=== PATIENT | male | born 1940 | race Caucasian/White ===

== ENCOUNTER 2020-12-22 16:00 | Inpatient (IN) | payer MEDICARE ==
[~2020-12-22] VITALS: Ht 167.6 cm; Wt 40.1 kg
[2020-12-22] MEDS ORDERED: OMNICEF300 MG PO (16:52)
[2020-12-22] MEDS ORDERED: THEREMS-M1 TAB PO (16:53)
[2020-12-22] MEDS ORDERED: COREG6.25 MG PO (16:54)
[2020-12-22] MEDS ORDERED: LIPITOR40 MG PO (16:55)
[2020-12-22] MEDS ORDERED: COZAAR25 MG PO (16:55)
[2020-12-22] MEDS ORDERED: NICODERM CQ1 EAC2 TOPICAL (16:56)
[2020-12-22] MEDS ORDERED: LASIX INJ40 MG/4 ML IV (16:57)
[2020-12-22] MEDS ORDERED: LOVENOX40 MG/0.4 SC (16:57)
[2020-12-22] MEDS ORDERED: PROTONIX40 MG PO (16:58)
[2020-12-22 16:59] LABS: BILIRUBIN NEGATIVE (NEGATIVE); KETONE NEGATIVE (NEGATIVE); NITRITE NEGATIVE (NEGATIVE); UROBILINOGEN NORMAL mg/dL (< 2)
--- NOTE | 2020-12-22 18:30 | NUR ---
Patient rec'd to unit via EMS, He was oriented to unit and room information. He is A/O times one to person. He is a fall risk. He has an alarm to his w/c and to his bed. He is redirected often and he will follow short commands only. All admission assessment, Hx. and orders completed.
--- NOTE | 2020-12-22 19:20 | NUR ---
PT IS RECEIVED OUTSIDE THE NURSES STATION IN A GERICHAIR. HE IS RESTLESS AND AGGRESSIVE WITH REDIRECTION. UNABLE TO REDIRECT. ADMINISTERED PRN HALDOL 2 MG AND ATIVAN 0.5 MG IM PER ORDERS. MONITOR FOR SAFETY.
--- NOTE | 2020-12-22 19:50 | NUR ---
PT RESTING CALMLY IN GERICHAIR OUTSIDE NURSES STATION. NO SIGNS OF DISTRESS NOTED.
[2020-12-22 20:00] VITALS: BP 184/115
--- NOTE | 2020-12-22 22:10 | NUR ---
ATTEMPTED TO CONTACT KINZA MADRID AT [phone] WITH NO ANSWER. UNABLE TO PROVIDE PASSCODE.
--- NOTE | 2020-12-22 23:21 | NUR ---
PT IS ALERT AND ORIENTED TO SELF ONLY. POOR INSIGHT INTO HIS SITUATION. AGGRESSIVE WITH REDIRECTION. COMPLIANT WITH ALL MEDICATIONS. RESISTANT TO REDIRECTION. VERY UNSTEADY WHEN AMBULATING. INCONT OF B&B. MONITOR FOR SAFETY.
[2020-12-23 01:31] VITALS: BP 150/90; BMI 16.5
[2020-12-23 05:49] LABS: BASOPHILS 0.3 % (0-2); EOSINOPHILS 1.6 % (0-7); HEMATOCRIT 49.5 % (42.0-54.0); HEMOGLOBIN 16.1 g/dL (13.5-17.5); IMMATURE GRANULOCYTES 0.3 % (0-5); LYMPHOCYTE ABS# 1.62 10x3/uL (1.32-3.57); MCH 29.6 pg (26.0-34.0); MCHC 32.5 g/dL (31.0-37.0); MEAN PLATELET VOLUME 11.3 fL (7.4-10.4); NEUTROPHIL ABS# 5.33 10x3/uL (1.78-5.38); NEUTROPHILS 68.8 % (40-80); PLATELET COUNT 186 10x3/uL (130-400); RBC 5.44 10x6/uL (4.20-6.10); RDW 15.5 % (11.5-14.5); WBC 7.7 10x3/uL (4.8-10.8)
[2020-12-23 06:40] LABS: ALBUMIN 2.7 g/dL (3.4-5.0); ALKALINE PHOSPHATASE 173 U/L (30-120); ALT (SGPT) 24 U/L (10-68); BILIRUBIN - TOTAL 0.89 mg/dL (0.2-1.3); CALC OSMOLALITY 275 mosm/kg (275-300); CALCIUM 8.5 mg/dL (8.5-10.1); CHLORIDE - SERUM 100 mmol/L (98-107); CHOL - HDL RATIO 3.7 ratio (2.3-4.9); CHOLESTEROL, TOTAL 154 mg/dL (0-200); GLUCOSE 86 mg/dL (74-106); HDL CHOLESTEROL 42 mg/dL (32-96); LDL CHOLESTEROL 92 mg/dL (0-100); LDL-HDL RATIO 2.2 ratio (1.5-3.5); POTASSIUM - SERUM 3.4 mmol/L (3.5-5.1); SODIUM 137 mmol/L (136-145); TRIGLYCERIDE 101 mg/dL (30-200); UREA NITROGEN 22 mg/dL (7-18); eGFR NON AFRICAN AMERICAN 76 mL/min (90-120)
--- NOTE | 2020-12-23 07:20 | NUR ---
PT DAUGHTER HOPE CALLED STATING WE HAVE HER DAD AND SOMEONE ATTEMPTED TO CALL HER LAST NIGHT AND SHE WAS RETURNING THE CALL. NURSE GAVE DAUGHTER THE PASSCODE AND STATED SHE WOULD CALL WITH AN UPDATE AFTER REPORT. SHE VERBALIZIED UNDERSTANDING.
[2020-12-23 09:27] VITALS: BP 155/102
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
--- NOTE | 2020-12-23 11:06 | NUR ---
NURSE ATTEMPTED TO CALL DR. JACKSON WHEN PT DAUGHTER REQUESTED PT/INR LABS AT THIS TIME.
--- NOTE | 2020-12-23 11:42 | NUR ---
NURSE SPOKE WITH ADAM AT [facility] IN REGARDS TO PT WARFARIN ORDERS AT THIS TIME. THE RECENT ORDER THAT WAS FILLED AT PHARMACY WAS WARFARIN 2 MG 1 TO 1/2 DAILY DIRECTED. NURSE OBTAINED NAME AND PHONE NUMBER OF ORDERING DOCTOR. JEANNE JACK OF [facility]. [phone]. WILL CALL TO OBTAIN CORRECT ORDER AT THIS TIME.
--- NOTE | 2020-12-23 11:50 | NUR ---
PT HERE AT THIS TIME TO EVAL PT AT THIS TIME.
--- NOTE | 2020-12-23 11:59 | NUR ---
PT LEFT A MESSAGE WITH NURSE AT [facility] FOR NURSE TO CALL BACK WITH CORRECT WARFARIN DOSAGE AT THIS TIME. AWAITING CALLBACK.
--- NOTE | 2020-12-23 13:00 | NUR ---
NURSE CALLED FROM [facility] WITH ORDER CLARIFICATION ON WARFARIN 1 MG WARFARIN 6 DAYS AND HOLD ON SATURDAY. NURSE THANKED HER FOR THE ORDER.
[2020-12-23 13:58] LABS: INR 1.35 (0.85-1.17); PROTIME 15.4 SECONDS (11.6-15.0)
--- NOTE | 2020-12-23 14:38 | NUR ---
ALERT, CALM, CONFUSED, COOPERATIVE. PATIENT AROSE FROM BED UNASSISTED AT BEGINNING OF SHIFT. PATIENT CAUTIONED TO CALL FOR ASSISTANCE WITH NEEDS. MIKE ALARM IN PLACE AND FUNCTIONING PROPERLY. PATIENT ASSISTED TO BATHROOM AND VOIDED IN TOILET. ASSISTED BACK TO BED. PATIENT VERY UNSTEADY WITH AMBULATION. NO FURTHER ADVERSE BEHAVIORS NOTED. CONTINUE POC PREVIOUSLY OUTLINED.
[2020-12-23 16:29] VITALS: Ht 167.6 cm; Wt 40.1 kg
--- NOTE | 2020-12-23 22:41 | NUR ---
PATIENT ATTEMPTED TO GET OUT OF BED AT BEGINNING OF SHIFT, EXPLAINED TO USE THE CALL WHITTEN, HE DOES NOT UNDERSTAND. ALARM ON AND AUDIBLE. MEDS CRUSHED AND GIVEN. WILL FOLLOW POC
[2020-12-24 00:03] VITALS: BP 120/93
[2020-12-24 08:42] LABS: PROTIME 12.7 SECONDS (11.6-15.0)
[2020-12-24 08:50] LABS: INR 1.05 (0.85-1.17)
[2020-12-24 09:11] VITALS: BP 142/88
--- NOTE | 2020-12-24 18:34 | NUR ---
Patient was rec'd this am lying on bed. He is med compliant when crushed and placed in food. He is full care with ADLs and food. He is incontient most of the time.
[2020-12-24 20:00] VITALS: BP 129/76
--- NOTE | 2020-12-24 21:23 | NUR ---
RECEIVED PATIENT IN HIS ROOM, HE IS VERY VERY CONFUSED, HE BECOMES ANGRY WITH REDIRECTION AND TRIES TO KICK STAFF. COMPLIANT WITH MEDS (CRUSHED). ALARM ON AND AUDIBLE. WILL FOLLOW POC
--- NOTE | 2020-12-25 00:56 | NUR ---
PATIENT GIVEN 0.5 ATIVAN IM FOR EXTREME AGITATION, HARD TO REDIRECT, HE HAS SAID A COUPLE OF TIMES THAT HE IS GOING TO ESCAPE. WILL MONITOR FOR EFFECTIVENESS
[2020-12-25 07:00] LABS: INR 1.22 (0.85-1.17); PROTIME 14.3 SECONDS (11.6-15.0)
[2020-12-25 09:53] VITALS: BP 120/64
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
--- NOTE | 2020-12-25 12:26 | NUR ---
RECEIVED PATIENT LYING IN RECLINING CHAIR BY NURSES STATION. PATIENT IS AWAKE AND ALERT TO PERSON ONLY. CALM AND COOPERATIVE WITH ASSESSMENT AT THIS TIME. PRESCRIBED MEDICATIONS PROVIDED ORDERED. MED COMPLIANT. PATIENT IS TOTAL CARE. STAFF ASSIST PATIENT WITH ADLS. PATIENT IS INCONTINENT OF BOWEL AND BLADDER. REDIRECT AND REORIENT nEEDED. FALL PRECAUTIONS IN PLACE FOR SAFETY. WILL CONTINUE PLAN OF CARE.
[2020-12-25 19:30] VITALS: BP 165/90
--- NOTE | 2020-12-25 21:08 | NUR ---
RECEIVED PATIENT IN BED, HE WAS TRYING TO GET UP AND PATIENT IS REDIRECTED WHICH HE BECOMES AGITATED WITH REDIRECTION. COMPLIANT WITH MEDS (CRUSHED). HE IS VERY CONFUSED, ALARM ON AND AUDIBLE
[2020-12-26 11:59] VITALS: BP 122/60
--- NOTE | 2020-12-26 15:48 | NUR ---
RECEIVED PATIENT IN HALLWAY IN RECLINING CHAIR BY NURSES STATION. AWAKE AND ALERT TO PERSON ONLY AT THIS TIME. CALM AND COOPERATIVE WITH ASSESSMENT. PRESCRIBED MEDICATIONS PROVIDED ORDERED. MEDS CRUSHED AND PROVIDED IN PUDDING PER ORDER. MED COMPLIANT AT THIS TIME. PATIENT ENCOURAGED TO EAT AND DRINK FOR PROPER NUTRITION PER STAFF. PATIENT IS A FEEDER. REDIRECT AND REORIENT NEEDED. NO BEHAVIORS NOTED AT THIS TIME. FALL PRECAUTIONS IN PLACE FOR SAFETY. WILL CONTINUE PLAN OF CARE.
[2020-12-26 22:10] VITALS: BP 155/99
--- NOTE | 2020-12-26 22:45 | NUR ---
PT IS ALERT AND ORIENTED TO SELF ONLY. POOR INSIGHT INTO HIS SITUATION. HE IS ATTENDING TO VISUAL HALLUCINATIONS OF DOGS RUNNING UNDER HIS BED. ENCOURAGE TO EAT A SNACK AND WAS ABLE TO DO THAT WITH MINIMAL ASSIST. PT RECEIVED A SHOWER AND A SHAVE. MORE ALERT AND HAVING A CONVERSATION WITH STAFF. HE SPEAKS IN A VERY LOW TONE. REPOSITION TO PREVENT BREAKDOWN. COMPLIANT WITH ALL MEDICATIONS. MONITOR FOR SAFETY.
[2020-12-27 08:00] VITALS: BP 149/71
--- NOTE | 2020-12-27 11:58 | NUR ---
RECEIVED PATIENT LAYING IN BED WITH EYES OPEN. AWAKE AND ALERT X1. CALM AND COOPERATIVE WITH ASSESSMENT AT THIS TIME. PRESCRIBED MEDICATIONS PROVIDED ORDERED. MED COMPLIANT AT THIS TIME WITH MEDS CRUSHED IN CHOCOLATE PUDDING. PATIENT ATE 100% OF BREAKFAST FED PER STAFF. NO BEHAVIORS NOTED AT THIS TIME. FALL PRECAUTIONS IN PLACE FOR SAFETY. WILL CONTINUE PLAN OF CARE.
--- NOTE | 2020-12-27 15:24 | PN ---
PATIENT:LV BRADY JR MEDICAL RECORD: [id number] LOCATION:[facility] ADMISSION DATE: 12/22/20 PROGRESS NOTE DATE OF SERVICE: 12/26/2020 SUBJECTIVE: The patient's case was discussed with staff. He has no new complaint. OBJECTIVE: The patient's weight is dangerously low and he continues to not eat. He will be continued on the Megace for appetite stimulation, but in addition to this I am going to discontinue his Habitrol patch because of possible appetite suppression associated with it. TRANSINT:[id number] Voice Confirmation ID: [id number] DOCUMENT ID: [id number] IMANI RENTERIA MD at 1524 CC: [id number] DICTATION DATE: 12/26/20 1646 [facility]: 12/27/20 0102 ADM IN [facility] [address] [place] [address]
[2020-12-27 17:21] LABS: BASOPHILS 0.1 % (0-2); EOSINOPHILS 0.5 % (0-7); HEMATOCRIT 46.3 % (42.0-54.0); HEMOGLOBIN 14.9 g/dL (13.5-17.5); IMMATURE GRANULOCYTES 0.2 % (0-5); LYMPHOCYTE ABS# 0.85 10x3/uL (1.32-3.57); LYMPHOCYTES 10.3 % (15-50); MCH 29.9 pg (26.0-34.0); MCHC 32.2 g/dL (31.0-37.0); MONOCYTES 7.4 % (2-11); NEUTROPHIL ABS# 6.69 10x3/uL (1.78-5.38); NEUTROPHILS 81.5 % (40-80); PLATELET COUNT 182 10x3/uL (130-400); RBC 4.98 10x6/uL (4.20-6.10); RDW 16.3 % (11.5-14.5); WBC 8.2 10x3/uL (4.8-10.8)
[2020-12-27 17:27] LABS: ALBUMIN 2.7 g/dL (3.4-5.0); BILIRUBIN - TOTAL 0.68 mg/dL (0.2-1.3); CALCIUM 9.5 mg/dL (8.5-10.1); CARBON DIOXIDE 37.5 mmol/L (21.0-32.0); CREATININE - SERUM 1.4 mg/dL (0.6-1.3); POTASSIUM - SERUM 4.5 mmol/L (3.5-5.1); PROTEIN - SERUM 6.6 g/dL (6.4-8.2)
[2020-12-27 20:16] VITALS: BP 114/70
--- NOTE | 2020-12-27 21:00 | NUR ---
PATIENT IS ORIENTED TO SELF ONLY. PATIENT IS NPO AND NO MEDICATIONS GIVEN. REDIRECTED NEEDED. REPOSITIONED UP IN BED. PATIENT WAS TRYING TO GET UP, AFTER HE WAS INCONTINENT IN BED. WILL FOLLOW PLAN OF CARE.
[2020-12-28 08:00] VITALS: BP 145/71
--- NOTE | 2020-12-28 10:19 | NUR ---
PAPERWORK FAXED TO [facility] AT THIS TIME. PHONE CALL GIVEN TO [facility] ABOUT MARIE.
--- NOTE | 2020-12-28 11:35 | NUR ---
[facility] nurse came by unit to "assess" patient for possible admission to their hospice. He states he feels that the patient is appro. but will send info to their Elisa Khan or [place] office.
[2020-12-28 14:46] LABS: INR 1.66 (0.85-1.17); PROTIME 18.2 SECONDS (11.6-15.0)
--- NOTE | 2020-12-28 15:18 | PN ---
PATIENT:LV BRADY JR MEDICAL RECORD: [id number] LOCATION:[facility] ADMISSION DATE: 12/22/20 PROGRESS NOTE DATE OF SERVICE: 12/27/2020 SUBJECTIVE: The patient's case was discussed with staff. He has no new complaint. OBJECTIVE: The patient has been noticed to have trouble processing medications and nutrition. A swallowing evaluation was done and he has failed it. The recommendation of speech pathology is that he be n.p.o. This is a serious development. The patient has an advanced dementia and is unlikely to benefit from a feeding tube or to allow it to be placed. A conference will be scheduled with the family to ask for direction. ASSESSMENT: Vascular dementia. PLAN: The patient's condition is grave with this new development and it would appear that hospice is likely to be the most appropriate recommendation. TRANSINT:[id number] Voice Confirmation ID: [id number] DOCUMENT ID: [id number] IMANI RENTERIA MD at 1518 CC: [id number] DICTATION DATE: 12/27/20 1548 POLICY LOAN CALCULATOR: 12/27/20 2323 ADM IN [facility] [address] [id number]
--- NOTE | 2020-12-28 15:20 | NUR ---
Nutrition follow-up: Pt now NPO due to failing swallow evaluation with probable aspiration Hospice evaulation ordered Pt had been eating ~30% average of some meals before swallow eval. Due to hospice consult and NPO order and no nutrition support pending, RDN will continue to monitor patient for any changes in status only. RDN will follow-up: every 7 days or if status changes.
--- NOTE | 2020-12-28 17:20 | NUR ---
pt alert to self only. pt is confused. redirect and reorient as needed. calm and cooperative with staff. pt is NPO at this time. Assist with ADL's as needed. Total assist. Incontient. turn and reposition q 2 hours and prn. pericare q 2 hour and PRN. Hospice here to eval for admission at this time. will cont plan of care. bed alarm in place and active.
[2020-12-28 20:00] VITALS: BP 159/96
--- NOTE | 2020-12-28 21:48 | NUR ---
RECEIVED PATIENT IN GERICHAIR INSIDE OF NURSE'S STATION, HE WAS PLACED IN HALLWAY WITHIN EYE SIGHT OF STAFF. HE IS NOW NPO AND HAS BEEN ACCEPTED BY [facility]. WILL FOLLOW POC
[2020-12-29 08:54] VITALS: BP 166/108
--- NOTE | 2020-12-29 13:37 | PN ---
PATIENT:LV BRADY JR MEDICAL RECORD: [id number] LOCATION:[facility] ADMISSION DATE: 12/22/20 PROGRESS NOTE DATE OF SERVICE: 12/28/2020 SUBJECTIVE: The patient's case was discussed with staff. He has no new complaint. OBJECTIVE: The patient is n.p.o. secondary to recommendations from speech. He is only oriented to person. His dementia is very advanced. His daughter says that this is all new and sudden, but then she goes on to talk about how 3 years ago, she moved him in with her because he was getting lost between her house and his. The 2 of them have lived in the same place for many years and they only live a half a mile apart on the same road, yet he was getting lost 3 years ago. Furthermore, she goes on to mention that she has been cutting his food up into small pieces for a long time because he gets choked easily. I do not see anything that is acute about this process. All of his symptoms are completely consistent with an advanced progressive dementia and in fact despite the daughter's distress and belief that this is sudden, she is giving information that contradicts that. At this point, if a feeding tube is not going to be used and I would not recommend it, the only option for him is hospice and comfort care. TRANSINT:[id number] Voice Confirmation ID: [id number] DOCUMENT ID: [id number] IMANI RENTERIA MD at 1337 CC: [id number] DICTATION DATE: 12/28/20 162 WELFARE VISITOR: 12/28/20 1837 ADM IN [id number] [place] [address]
--- NOTE | 2020-12-29 15:41 | NUR ---
PATIENT RESTING, EYES CLOSED, CONTINUES ON NPO DIET ORDER. CATAPRES PATCH APPLIED PER ORDERS. NON-VERBAL. NO ADVERSE BEHAVIORS NOTED. NO S/S PAIN.
[2020-12-29] MEDS ORDERED: CATAPRES TTS-10.1 MG TRANSDERM (17:24)
[2020-12-29 20:00] VITALS: BP 183/107
--- NOTE | 2020-12-29 21:38 | NUR ---
RECEIVED PATIENT IN [facility], HE IS NOW ON HOSPICE, HE IS NPO, HE IS LYING WITH EYES CLOSED, NO SIGNS OF PAIN NOTICED. WILL FOLLOW POC
--- NOTE | 2020-12-30 08:15 | NUR ---
NURSE CALLED [facility] AND WAS GIVEN NUMBER TO [place] [facility]ICE TO VERIFY THAT PATIENT HOME WAS SET UP FOR HOSPICE. OBTAINED CORRECT FAX NUMBER OF [phone]. PAPERWORK FAXED TO OFFICE AND NURSE ATTEMPTED TO CALL [facility] TO NOTIFY OF PENDING EMS CALL. NO ANSWER. WILL ATTEMPT AGAIN AND CALL EMS.
--- NOTE | 2020-12-30 08:20 | NUR ---
NURSE ATTEMPTED TO CONTACT [facility] FOR D/C TIME. NO ANSWER AT THIS TIME. WILL ATTEMPT AGAIN.
--- NOTE | 2020-12-30 09:00 | NUR ---
NURSE ATTEMPTED TO CALL DAUGHTER AGAIN AT THIS TIME. NO ANSWER. NURSE LEFT A VOICEMAIL WITH NAME, NUMBER FOR CALLBACK AT THIS TIME.
--- NOTE | 2020-12-30 09:16 | NUR ---
DAUGHTER CALLED BACK AT THIS TIME. NURSE STATED PT WAS READY FOR D/C AND ASKED IF SHE WAS READY FOR PT TO BE SENT HOME VIA EMS AT THIS TIME. SHE STATED SHE WAS READY SHE WOULD BE. NURSE GAVE AN OVERVIEW OF HOW THE PROCESS WORKED. DAUGHTER WAS NERVOUS. NURSE EDCUATED SHE WAS WOULD BE NOTIFIED WHEN PT LEFT [facility]. NURSE STATED SHE WOULD LET HER KNOW INFORMATION IT WAS HAPPENING. SHE WAS THANKFUL AND LESS NERVOUS.
--- NOTE | 2020-12-30 09:20 | NUR ---
NURSE CALLED EMS FOR D/C HOME WITH [facility]. ALL INFORMATION GIVEN. FACESHEET WITH PCS FORM AND DNR ORDER TO BE SENT WITH PT AT D/C.
[2020-12-30 09:55] VITALS: BP 196/97
--- NOTE | 2020-12-30 10:20 | NUR ---
REC'D PT SITTING IN GERICHAIR AT THIS TIME. PT IS CALM. NO MEDS ORDERED. PT IS NPO PER ORDER. PT IS VERY LETHARGIC. CONT TO TURN AND REPOSITION Q 2 HOUR AND PRN. WEIGHT OBTAINED FOR D/C. PT TOLERATED [facility]. EGG CRATE IN PLACE. CHAIR ALARM IN PLACE. WILL CONT PLAN OF CARE.
--- NOTE | 2020-12-30 11:11 | NUR ---
NURSE CALLED DAUGHTER TO INFORM HER THAT EMS JUST LEFT WITH THE PATIENT TO HEAD HOME. NURSE GAVE HER HOSPICE NUMBER [facility] AT THIS TIME. NURSE CALLED HOSPICE IN [place] TO NOTIFY OF PT D/C FROM THIS UNIT TO HOME. NURSE NOTIFIED [place] OF PT D/C AND DAUGHTER WANTING TO SPEAK WITH SOMEONE. SHE THANKED NURSE.
--- NOTE | 2020-12-30 11:50 | NUR ---
PT D/C PER EMS AT THIS TIME. TOTAL ASSIST TO STRECHTER. PT DID RESPOND A BIT. ALL PERSONAL BELONGINGS SENT WITH PT. ALL PAPERWORK FAXED AND SENT WITH EMS. NOTIFIED HOSPICE WE[facility]. NOTIFIED FAMILY WELL.
--- NOTE | 2021-01-02 14:04 | PN ---
PATIENT:LV BRADY JR MEDICAL RECORD: [id number] LOCATION:[facility] ADMISSION DATE: 12/22/20 PROGRESS NOTE DATE OF SERVICE: 12/29/2020 SUBJECTIVE: The patient's case was discussed with staff. OBJECTIVE: The patient's condition is grave. He is not able to eat or drink and he is only oriented to person and just barely at that. ASSESSMENT: Vascular dementia. PLAN: The patient's longitudinal history completely fits with the diagnosis of dementia. He will be discharged tomorrow and will go home with [facility] following him. Obviously, his prognosis is exceedingly poor. TRANSINT:[id number] Voice Confirmation ID: [id number] DOCUMENT ID: [id number] IMANI RENTERIA MD at 1404 CC: [id number] DICTATION DATE: 12/29/20 180 WRECKER DRIVER: 12/29/20 181 DIS IN 12/30/20 [id number] [place] [address]
--- NOTE | 2021-01-02 14:06 | DS ---
PATIENT:LV BRADY JR :42 MEDICAL RECORD: [id number] DISCHARGE SUMMARY ADMISSION DATE: 12/22/20 DISCHARGE DATE: 12/30/20 DATE OF ADMISSION: 12/22/2020. DATE OF DISCHARGE: 12/30/2020. IDENTIFYING DATA: The patient is a 80-year-old male that looks older than his stated age and he was admitted voluntarily. CHIEF COMPLAINT: Altered mental status and increased aggression. HISTORY OF PRESENT ILLNESS: The patient resides with his daughter. She was the caregiver. She stated that the patient had not been acting like himself over the last week. Daughter took the patient to the PCP and they felt it was a UTI. The patient continued to have some aggressive episodes toward the daughter and then she presented him to the Emergency Room and the patient was referred to correction related to change in mental status and aggressive behavior. HOSPITAL COURSE: The patient was admitted to the hospital and fully evaluated from a medical, psychological, and social standpoint and during the course the patient was placed on n.p.o. secondary to recommendations from Speech. The patient was only oriented to person. His dementia was very advanced. His daughter states that all this was new onset, but then she goes to talk about how 3 years ago she moved him in with her because he was getting lost between her house and his. The two of them had lived in the same place for many years and they only live a half mile apart. She also then states that she has been cutting up his food into small pieces because he becomes choked easily. Also goes on that all of his symptoms are completely consistent with an advanced progressive dementia and in fact despite the daughter's expression, I believe that this is sudden. She has given information that contradicts that. It was then discussed the point of having a feeding tube and therefore the discharge option for him was hospice and comfort care. The patient did not appear to be acutely dangerous to himself or others. DISCHARGE DIAGNOSES: AXIS I: Major neurocognitive disorder. AXIS III: Heart disease, blood clots, hypertension, chronic obstructive pulmonary disease. AXIS IV: Stressors including moderate. AXIS V: Global assessment of functioning is 30. PLAN: At the time of discharge, the patient had advanced dementia, was not eating, was not able to eat. The patient was in good behavioral control. He had no thoughts of harming himself. He had had no aggressive. The patient was restless at times. He had very limited insight about situation. The patient went home with daughter with hospice. Dictated By: Keyur Cosby APN. I have interviewed/examined the above patient and agree with these documented findings. TRANSINT:[id number] Voice Confirmation ID: [id number] DOCUMENT ID: [id number] DISCHARGE SUMMARY REPORT [id number] LV BRADY JR Dictated By: KEYUR COSBY I have interviewed/examined the above patient and agree with these documented findings. IMANI RENTERIA MD at 1406 CC: [id number] DICTATION DATE: 12/30/20 1200 GATE TECHNICIAN: 12/31/20 0457 DIS IN 12/30/20 [id number] [place] [address]
== END 2020-12-30 11:00 | disposition home health service (06) | DRG 884 ==
LOC: D.PSYCH 16:00
PROVIDERS: Family Medicine; ADMIT Psychiatry & Neurology Psychiatry; ATTEND Psychiatry & Neurology Psychiatry
DX: F01.51 Vascular dementia, unspecified severity, with behavioral disturbance (principal); N39.0 Urinary tract infection, site not specified; I25.10 Atherosclerotic heart disease of native coronary artery without angina pectoris; I10 Essential (primary) hypertension; J44.9 Chronic obstructive pulmonary disease, unspecified; E78.5 Hyperlipidemia, unspecified; K21.9 Gastro-esophageal reflux disease without esophagitis; F17.200 Nicotine dependence, unspecified, uncomplicated; R54 Age-related physical debility; R63.0 Anorexia; R13.10 Dysphagia, unspecified